=== PATIENT | male | born 1990 | race Caucasian/White ===

== ENCOUNTER 2021-01-31 16:52 | Outpatient (CLI) | payer OTHER, SELFPAY ==
--- NOTE | 2021-01-31 17:18 | XR_ITS ---
WS: [id number] Left ankle, 3 views, 01/31/2021 Clinical Data: LT. ANKLE PAIN Comparison: None. Findings: No fractures or dislocations are seen. The ankle mortise is normal. The talus and calcaneus are unrem arkable. No soft tissue swelling over the medial or lateral malleolus is seen. There is a small Achilles spur. XR/XR ankle LT min 3V* [id number] Impression: Negative left ankle.
== END 2021-01-31 16:53 | disposition home or self-care (01) ==
PROVIDERS: PCP Family Medicine; Visit Provider Family Medicine
DX: M25.572 Pain in left ankle and joints of left foot (principal)
CPT/HCPCS: 73610

== ENCOUNTER 2022-11-11 09:54 | Outpatient (CLI) | payer BC, SELFPAY ==
[2022-11-11 10:54] LABS: Viscosity Semen Droplets; Volume Semen 2.5 mL (2-5)
[2022-11-11 10:55] LABS: Pathology Referral Yes; Sperm Immotility 30 % (50-60); Sperm Non-Progressive Motility 0 % (5-10); Sperm Progressive Motility 70 % (31-34); White Blood Count Semen 0-4 /hpf
[2022-11-11 11:36] LABS: Side 1 61; Sperm Count 61.5 mill/mL (40-160)
[2022-11-11 11:37] LABS: Side 2 62; Side WITHIN 10% 2
== END 2022-11-11 09:55 | disposition home or self-care (01) ==
LOC: LAB 09:57
PROVIDERS: PCP Family Medicine; Visit Provider Family Medicine
DX: Z31.69 Encounter for other general counseling and advice on procreation (principal); Z51.81 Encounter for therapeutic drug level monitoring; R53.81 Other malaise; R53.83 Other fatigue; Z13.220 Encounter for screening for lipoid disorders; E55.9 Vitamin D deficiency, unspecified
CPT/HCPCS: 80053; 80061; 80503; 82306; 84403; 84443; 85025; 89320

== ENCOUNTER 2022-11-27 20:00 | Outpatient (CLI) | payer BC, SELFPAY | END 2022-11-27 20:01 | disposition home or self-care (01) | LOC: SLEEP 11-28 06:34 | PROVIDERS: PCP Family Medicine; Visit Provider Family Medicine | DX: G47.33 Obstructive sleep apnea (adult) (pediatric) (principal) | CPT/HCPCS: 95810 ==

== ENCOUNTER 2023-01-21 07:01 | Outpatient (CLI) | payer BC, SELFPAY ==
--- NOTE | 2023-01-21 07:15 | US_ITS ---
WS: [id number] RIGHT UPPER QUADRANT ULTRASOUND HISTORY: Elevated transaminases COMPARISON: None available. Liver: 15.5 cm in length. Normal size with mild hepatic steatosis. No mass identified. Portal Vein: Normal hepatopetal flow with monophasic waveform. Gallbladder: Normally distended gallbladder with no stones or wall thickening. CBD: 0.3 cm Pancreas: Portions of the head and tail are obscured. The body is negative. Right kidney: 12.4 cm in length. Normal size and echogenicity. No hydronephrosis or mass. Aorta and IVC: Unremarkable abdominal aorta and IVC. No ascites. US/US abdomen limited [id number] IMPRESSION: 1. Normal gallbladder. 2. No bile duct dilatation. 3. Poorly visualized pancreas. 4. Mild hepatic steatosis.
== END 2023-01-21 07:02 | disposition home or self-care (01) ==
LOC: RAD 07:03
PROVIDERS: PCP Family Medicine; Visit Provider Family Medicine
DX: R74.01 Elevation of levels of liver transaminase levels (principal); K76.0 Fatty (change of) liver, not elsewhere classified
CPT/HCPCS: 76705

== ENCOUNTER → 2023-06-13 16:13 | Outpatient (BNVA) | payer BC, SELFPAY | PROVIDERS: PCP Family Medicine; Visit Provider Registered Nurse Neonatal Intensive Care | DX: R05.9 Cough, unspecified (principal); J06.9 Acute upper respiratory infection, unspecified; Z20.822 Contact with and (suspected) exposure to COVID-19 | CPT/HCPCS: 87426 ==

== ENCOUNTER 2023-12-05 15:57 | Outpatient (CLI) | payer BC, SELFPAY ==
[2023-12-05 16:45] LABS: Basophils # 0.1 10^3/uL (0.0-0.1); Basophils % 0.6 %; Eosinophils # 0.1 10^3/uL (0.0-0.8); Eosinophils % 1.5 %; Hematocrit 43.9 % (37-53); Lymphocytes # 2.2 10^3/uL (0.8-4.8); Lymphocytes % 25.8 %; Mean Corpuscular HGB Conc 35.5 g/dL (30-55); Mean Corpuscular Hemoglobin 30.4 pg (27-33); Mean Corpuscular Volume 85.4 fl (82-101); Mean Platelet Volume 10.1 fL (7.4-10.4); Monocytes # 0.7 10^3/uL (0.2-0.9); Monocytes % 7.6 %; Neutrophils # 5.51 10^3/uL (1.8-7.7); Neutrophils % 64.2 %; Nucleated Red Blood Cells % 0 %; Platelet Count 311 10^3/cmm (157-399); Red Blood Count 5.14 10^6/uL (3.85-5.65); Red Cell Distribution Width 11.7 % (12.1-15.1); White Blood Count 8.58 10^3/uL (3.29-11.43)
[2023-12-05 17:25] LABS: 25 Hydroxy Vitamin D 32 ng/mL (30-100); Albumin Level 4.6 g/dL (3.5-5.2); Alkaline Phosphatase 94 U/L (40-130); Blood Urea Nitrogen 11 mg/dL (6-20); Calcium 9.5 mg/dL (8.5-10.5); Carbon Dioxide 21 mmol/L (22-29); Chloride 99 mmol/L (98-107); Globulin 2.8 g/dL (1.3-4.6); Glomerular Filtration Rate 131.5 mL/min (90-130); Glucose 69 mg/dL (65-115); Osmolality Calculated 276 mOsm/kg (285-295); Sodium 134 mmol/L (136-145); Thyroid Stimulating Hormone 1.16 uIU/mL (0.27-4.20); Total Bilirubin 0.7 mg/dL (0.15-1.2); Total Protein 7.4 g/dL (6.6-8.7)
[2023-12-05 17:32] LABS: Alanine Aminotransferase 67 U/L (0-41); Anion Gap 17.8 (5-19); Aspartate Amino Transferase 35 U/L (0-40); Potassium 3.8 mmol/L (3.5-5.1)
[2023-12-05 18:10] LABS: Free T4 Free Thyroxine 1.27 ng/dL (0.82-1.77)
== END 2023-12-05 15:58 | disposition home or self-care (01) ==
LOC: LAB 15:59
PROVIDERS: PCP Family Medicine; Visit Provider Family Medicine
DX: E03.9 Hypothyroidism, unspecified (principal); Z51.81 Encounter for therapeutic drug level monitoring; E55.9 Vitamin D deficiency, unspecified
CPT/HCPCS: 36415; 80053; 82306; 84439; 84443; 85025